=== PATIENT | male | born 1980 | race Two or more races ===

== ENCOUNTER 2019-09-04 03:23 | Emergency (ER) | payer SELFPAY ==
[~2019-09-04] VITALS: Ht 167.6 cm; Wt 83.9 kg
--- NOTE | 2019-09-04 03:25 | NUR ---
PT BIRA C/O LACERATION ON THE RIGHT ANTERIOR SCALP. MINIMAL BLEEDING NOTED. PT AAOX4, VSS, RESPIRATIONS EVEN AND UNLABORED ON RA W/ NAD NOTED. PT CONNECTED TO THE WELLNESS COACH AND POX
--- NOTE | 2019-09-04 03:27 | NUR ---
DR SORENSON AT BEDSIDE FOR EVAL
--- NOTE | 2019-09-04 03:33 | NUR ---
EMT AT BEDSIDE FOR WOUND CARE
--- NOTE | 2019-09-04 03:49 | NUR ---
PT LILLI, TORRANCE [phone]
--- NOTE | 2019-09-04 03:50 | NUR ---
PT TAKEN TO CT
--- NOTE | 2019-09-04 04:00 | NUR ---
PT BACK FROM CT
[2019-09-04] MEDS ORDERED: HYDROCODONE/APAP 5/325MG 1 EACH TABLET PO ONE (04:30)
[2019-09-04] MEDS ORDERED: HYDROCODONE/APAP 10/325MG 1 EA TABLET ONE (04:35)
[2019-09-04] MEDS ORDERED: HYDROCODONE/APAP 5/325MG 1 EACH TABLET ONE (04:39)
--- NOTE | 2019-09-04 04:49 | NUR ---
INTERNAL [facility] ETA: 20 MINS
--- NOTE | 2019-09-04 05:06 | NUR ---
Patient discharged to home in stable condition. Written and verbal after care instructions given. Patient verbalizes understanding of instruction. ambulatory with a steady gait
[2019-09-04 05:07] VITALS: BP 126/84
== END 2019-09-04 05:07 | disposition home or self-care (01) ==
LOC: ER 03:24 → EDBD 03:24 → ER 05:07
DX: S01.01XA Laceration without foreign body of scalp, initial encounter (principal); S09.8XXA Other specified injuries of head, initial encounter; W18.39XA Other fall on same level, initial encounter; Y93.01 Activity, walking, marching and hiking; Y92.488 Other paved roadways as the place of occurrence of the external cause; Y99.8 Other external cause status
CPT/HCPCS: 12002; 70450; 82962; 99284; A6403

== ENCOUNTER 2019-09-13 09:30 | Emergency (ER) | payer SELFPAY ==
[~2019-09-13] VITALS: Ht 167.6 cm; Wt 83.9 kg
[2019-09-13 09:30] VITALS: BP 128/77
--- NOTE | 2019-09-13 10:01 | NUR ---
STAPLE REMOVED. WOUND APPEARS TO BE HEALING WELL.
== END 2019-09-13 10:15 | disposition home or self-care (01) ==
LOC: ER 09:30
DX: S01.01XD Laceration without foreign body of scalp, subsequent encounter (principal); W01.0XXD Fall on same level from slipping, tripping and stumbling without subsequent striking against object, subsequent encounter